=== PATIENT | male | born 1980 | race Caucasian/White ===

== ENCOUNTER 2016-04-21 21:58 | Emergency (ER) | payer OTHER ==
[~2016-04-21] VITALS: Ht 167.6 cm; Wt 68.2 kg
[~2016-04-21 21:58] MED LIST: [UNRECOGNIZED DRUG - CODE] PO
[2016-04-21 22:02] VITALS: BP 128/85; PULSE 114; RESP 18; O2SAT 96
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
[2016-04-21] MEDS ORDERED: SILV400C TP (22:48)
[2016-04-21 22:49] VITALS: BP 128/85; PULSE 114; RESP 18; O2SAT 96
[2016-04-21] MEDS ORDERED: _HYDROcodone/APAP 5-325 mg Tablet PO PRN (22:50)
[2016-04-21] MEDS ORDERED: HYDROcodone-APAP 5-325 mg Tablet PO ONE (22:50)
[2016-04-21 23:32] VITALS: BP 128/85; PULSE 114; RESP 18; O2SAT 96
== END 2016-04-21 23:33 | disposition home or self-care (01) ==
LOC: SED 21:58
DX: T23.271A Burn of second degree of right wrist, initial encounter (principal); T22.211A Burn of second degree of right forearm, initial encounter; T31.0 Burns involving less than 10% of body surface; X16.XXXA Contact with hot heating appliances, radiators and pipes, initial encounter; Y93.89 Activity, other specified; Y92.9 Unspecified place or not applicable; Y99.8 Other external cause status; F17.200 Nicotine dependence, unspecified, uncomplicated; Z88.8 Allergy status to other drugs, medicaments and biological substances

== ENCOUNTER 2016-05-10 17:57 | Emergency (ER) | payer OTHER ==
[~2016-05-10] VITALS: Ht 167.6 cm; Wt 72.7 kg
[~2016-05-10 17:57] MED LIST changes: +SILV400C TP
[2016-05-10 18:02] VITALS: BP 126/82; PULSE 117; RESP 16; O2SAT 98
--- NOTE | 2016-05-10 19:20 | ED.REPORT ---
HPI-Psychiatric Illness Date of Service May 10, 2016 ED Provider: Channing Banks MD A 35 year old male with a history of asthma, hepatitis C, depression, previous suicide attempts, and drug abuse presents to the ED accompanied by his mother with suicidal ideation, worsening from baseline just prior to arrival. The patient denies a set plan but contemplates overdose frequently. He has had previous suicide attempts (x4) by alcohol, Suboxone, prescription medication, and heroin overdose. The patient is also experiencing auditory hallucinations, which instruct him to do anything from brush his teeth to kill himself. He was in [facility] recently for these hallucinations and was discharged yesterday , although he left before he was advised to. He has had previous psychiatric admissions. His symptoms are consistently exacerbated with drug or alcohol use. His last methamphetamine use was today. He has an appointment with his PCP tomorrow but felt he "just couldn't wait." Nursing Notes Stated Complaint: SUICIDAL IDEATION Chief Complaint: Psychiatric Complaint Nursing Notes Reviewed: Yes Allergies: Coded Allergies: trazodone (Verified Allergy, Severe, priapism, 04/21/16) Scheduled Diclofenac-Expunged Drug, Do Not Renew! (Diclofenac-Expunged Drug, Do Not Renew! ) 50 Mg Tablet 75 MG PO BID PRN Silver Sulfadiazine (Silver Sulfadiazine) 400 Gm Cream..g. 400 GM TP BID General Time Seen by MD: 19:04 Chief Complaint Hallucinations, auditory, Suicidal ideation Hx Obtained From: Patient Arrived By: Walk-in Onset Occurred: Just prior to arrival (Worsening from baseline) Symptom Duration: Since onset Severity: Current: No pain currently Severity: Maximum: No pain Associated with: Reports: Depression, Denies: Fever Exacerbated by: Alcohol use, Drug abuse Related History: Reports: Depression, Prior suicide attempt(s) Immunizations: Unknown Recent Healthcare: No recent doctor visit Similar Sx Previous: Yes Risk-Psychiatric Illness Suicide Risk Stratification Suicide Risk Factors - Adult: : Previous attempt: Prior psych admission: Substance abuseNo: Access to firearms, Alcohol use RF Statements: Risk factors reviewed Past Medical History Past Medical History Notes: On suboxone 05/10/2016 Past Medical History Priapism in April 2015, surgical intervention required Priapism in February 2016 Hepatitis C Major depressive disorder Suicide attempts by overdose (alcohol, suboxone, prescription medications, heroin) Reports: Asthma Past Surgical History Left knee surgery Smoking History Current Every Day Smoker Social History Alcohol Use: Denies alcohol use Drug Use: IV drugs, Meth Other Social History: Good social support, Local resident Ambulatory Status Independent Review of Systems Constitutional: Denies: Fever Psychiatric: Reports: Hallucinations, auditory, Suicidal ideation Complete sys rev & neg: except as marked. Physical Exam Initial Vital Signs Vital Signs (First) Date Time Temp Pulse Resp B/P Pulse Ox O2 Delivery O2 Flow Rate FiO2 05/10/16 18:02 37.2 117 16 126/82 98 05/10/16 21:28 Room Air Initial VS: Reviewed Head / Eyes: Atraumatic, Normocephalic ENT: Conjunctiva normal, No scleral icterus Skin: Warm, Dry General/Constitutional: Awake, Alert Neurologic: Oriented X3, Speech NL Psychiatric: Affect NL, Cognitive function NL, Judgment/insight NL, Thought content NL Abnormal Thinking / Perception: Positive: Hallucinations, auditory, Suicidal, no plan Respiratory / Chest: Breath sounds NL, Breath sounds = bilat, No respiratory distress Cardiovascular: Regular rhythm, Heart sounds NL, No gallop, No murmurs, No rubs Heart Rate / Rhythm: Positive: Tachycardia Interpretation & Diagnostics URINE DIPSTICK 1.015 sp gravity 1.0 pH Otherwise negative Urine Drug Screen + Methamphetamine + Oxycodone Otherwise Negative Re-Eval/Medical Decision Med Decision/Clinical Course litigation services manager evaluation completed. The patient does not have a detail plan it does not appear to be an imminent threat to himself or others. He is acutely intoxicated on methamphetamine although behavior is actually fairly normal. He has endorsed plans to follow up with primary care and outpatient substance abuse treatment. Source of Hx: Old records Re-Evaluation/Progress : Time of Eval: 20:57 Patient Status: Condition improved Re-Evaluation/Progress Note: Discussed with patient diagnosis and plan for discharge. Follow-up and return to the ER instructions given. Patient agrees with plan for care and all questions were addressed. Counseled Regarding: Diagnosis, Need for follow-up, When/why to return to ED Discharge & Departure Impression: Primary Impression: Suicidal thoughts Additional Impression: Methamphetamine abuse )( Condition at Discharge: No danger to self, No danger to others Disposition: Home Discharge Condition All VS Reviewed: Yes Condition: Stable Additional Instructions: Do not use methamphetamine, take hydroxyzine which you have at home already as needed for agitation and insomnia. Follow up with [facility] services and with primary care as planned tomorrow. Return to emergency department if having increasing thoughts of self-harm. Referrals: Kael Smith DO (PCP) Zaneibrudy Attestation Portions of this note were transcribed by Cony Nash. I, Dr. Banks, personally performed the history, physical exam, and medical decision-making; I reviewed and confirmed the accuracy of the information in the transcribed note. Signed by: Arlene Booth, 05/10/2016, 22:52 copies to: Kael Smith Donald L MD May 10, 2016 19:20 CONY NASH May 10, 2016 19:46
[2016-05-10 21:28] VITALS: BP 131/76; PULSE 85; RESP 16; O2SAT 96
== END 2016-05-10 21:23 | disposition home or self-care (01) ==
LOC: SED 17:57
DX: R45.851 Suicidal ideations (principal); F15.20 Other stimulant dependence, uncomplicated; F17.200 Nicotine dependence, unspecified, uncomplicated; F11.20 Opioid dependence, uncomplicated; Z88.8 Allergy status to other drugs, medicaments and biological substances

== ENCOUNTER 2016-05-14 00:10 | Observation (INO) | payer OTHER ==
[~2016-05-14] VITALS: Ht 167.6 cm; Wt 73.4 kg
[2016-05-14] VITALS (11 sets, daily range): BP systolic 108–149; BP diastolic 65–95; PULSE 78–141; RESP 12–20; O2SAT 94–100
--- NOTE | 2016-05-14 00:20 | ED.REPORT ---
HPI-Overdose/Alcohol Toxicity Date of Service May 14, 2016 ED Provider: Alex Holly MD Pt is a 35 y.o. male with a hx of heroin abuse who presents to the ED via EMS after a polysubstance overdose. Per EMS pt reported using heroin around 0800 today, he was upset about this use so he then took 14 Suboxone and a 'lot' of hydroxyzine, which he thought was Seroquel, in a suicide attempt. Per pt he was 'having a hard time and wanted to quit'. He states that after taking all of the pills he realized he didn't want to and injected himself with Narcan, he then called EMS. Upon examination pt states he is not suicidal. Pt also states that his counselor is helping him get into an inpatient treatment program. Nursing Notes Stated Complaint: POSS OVERDOSE Chief Complaint: Substance Abuse Nursing Notes Reviewed: Yes Allergies: Coded Allergies: trazodone (Verified Allergy, Severe, priapism, 04/21/16) Scheduled Diclofenac ER (Diclofenac ER) 75 Mg Tablet 75 MG PO BID Silver Sulfadiazine (Silver Sulfadiazine) 400 Gm Cream..g. 400 GM TP BID General Time Seen by Provider: 00:18 Chief Complaint Drug overdose, Suicidal attempt Hx Obtained From: Patient, EMS Arrived By: Ambulance Onset Occurred: Just prior to arrival Severity: Current: No pain currently Past Medical History Past Medical History Notes: On suboxone 05/10/2016 Past Medical History Priapism in April 2015, surgical intervention required Priapism in February 2016 Hepatitis C Major depressive disorder Suicide attempts by overdose (alcohol, suboxone, prescription medications, heroin) Reports: Asthma Past Surgical History Left knee surgery Smoking History Current Every Day Smoker Social History Alcohol Use: Denies alcohol use Drug Use: IV drugs, Meth Other Social History: Good social support, Local resident Ambulatory Status Independent Review of Systems Overdose, polysubstance Psychiatric: Reports: Suicidal ideation Complete sys rev & neg: except as marked. Physical Exam Initial Vital Signs Vital Signs (First) Date Time Temp Pulse Resp B/P Pulse Ox O2 Delivery O2 Flow Rate FiO2 05/14/16 00:19 36.6 141 13 130/80 96 Room Air Initial VS: Reviewed, Vital signs abnormal Extremities: Vascular intact, Neuro intact Skin: Warm, Dry, No cyanosis General/Constitutional: Alert, Well appearing, Well developed, Well hydrated, Well nourished, Cooperative, Not toxic appearing Pt nods off during conversation Pt is calm Respiratory / Chest: Atraumatic, Breath sounds NL, Breath sounds = bilat, No respiratory distress, No rales, No rhonchi, No wheezing, No retractions, No stridor Cardiovascular: Regular rhythm, Heart sounds NL, No gallop, No murmurs, No rubs , Peripheral circulation NL Heart Rate / Rhythm: Positive: Tachycardia Abdomen: Atraumatic, Soft, No distention Neurologic: Oriented X3 Psychiatric: Affect NL, Mood NL, Not suicidal (Upon examination), Not homicidal Head / Eyes: Atraumatic, Normocephalic, PERRL Pupils: Positive: Pinpoint Skin: Atraumatic, Color NL, Warm, Dry, Intact No injection abscesses Interpretation & Diagnostics Lab Results Interpretation Result Diagram: 05/15/16 0802 05/15/16 0802 Test 05/14/16 00:50 Hold Lepe Top Tube Received (Received) Salicylates Level < 3.0ug/mL (30-250) Acetaminophen Level < 15.0ug/mL Rx (10-25) Alcohol, Quantitative < 10mg/dL (0-10) Lab values outside NL range: no clinical significance. Lab Results Interpretation: No evidence of significant coingestions Re-Eval/Medical Decision Med Decision/Clinical Course 35-year-old male with a history of heroin dependence presents after a suicide attempt with Suboxone and hydroxyzine. Case was discussed with poison control and their feeling is that hydroxyzine would be the primary concern at this time. Case was discussed with Dr. Nye the patient will be admitted to the hospitalist service for further evaluation and treatment. Source of Hx: Old records Re-Evaluation/Progress : Time of Eval: 01:37 Re-Evaluation/Progress Note: Pt rechecked. Discussed plan for admission, pt understands and agrees with plan. Consultation #1: Call Returned at: 00:48 Note: Consulted with poison control. Recommended admiting pt for observation. Consultation #2: Referral / Consult Name: Bhavik Nye MD Consulted With: Hospitalist Call Returned at: 01:42 Intel Analyst: Accepts admit Note: Discussed pt conditon, accepts admit. Counseled Regarding: Diagnosis, Lab results, Need for follow-up, When/why to return to ED Discharge & Departure Impression: Primary Impression: Suicide attempt by substance overdose Encounter type: initial encounter Qualified Code: T65.92XA - Toxic effect of unspecified substance, intentional self-harm, initial encounter Disposition: ADMITTED TO HOSPITAL Discharge Condition All VS Reviewed: Yes Condition: Stable Referrals: Kael Smith DO (PCP) Crit Care Except Billable Proc Time Spent: 30-74 minutes Critical Care Notes: Polysubstance overdose requiring Narcan administration and admission to [facility]. Scribe Attestation Portions of this note were transcribed by Eren Ramirez. I, Dr. Holly personally performed the history, physical exam and medical decision-making; I reviewed and confirmed the accuracy of the information in the transcribed note. Signed by: Arlene Parekh, 05/14/16 and 0558. copies to: Kael Smith Howard L MD May 14, 2016 00:19 EREN RAMIREZ May 14, 2016 00:34 (ALT/SGPT) 58U/L (0-44) Alkaline Phosphatase 77U/L (25-150) Total Protein 6.9g/dL (6.4-8.4) Albumin 4.1g/dL (3.4-5.0) Hold Lepe Top Tube Received (Received) Salicylates Level < 3.0ug/mL (30-250) Acetaminophen Level < 15.0ug/mL Rx (10-25) Alcohol, Quantitative < 10mg/dL (0-10) Re-Eval/Medical Decision Source of Hx: Old records Re-Evaluation/Progress : Time of Eval: 01:37 Re-Evaluation/Progress Note: Pt rechecked. Discussed plan for admission, pt understands and agrees with plan. Consultation #1: Call Returned at: 00:48 Note: Consulted with poison control. Recommended admiting pt for observation. Consultation #2: Referral / Consult Name: Bhavik Nye MD Consulted With: Hospitalist Call Returned at: 01:42 Intel Analyst: Accepts admit Note: Discussed pt conditon, accepts admit. Counseled Regarding: Diagnosis, Lab results, Need for follow-up, When/why to return to ED Discharge & Departure Impression: Primary Impression: Suicide attempt by substance overdose Encounter type: initial encounter Qualified Code: T65.92XA - Toxic effect of unspecified substance, intentional self-harm, initial encounter Disposition: ADMITTED TO HOSPITAL Discharge Condition All VS Reviewed: Yes Condition: Stable Referrals: Kael Smith DO (PCP) Arlene Attestation Portions of this note were transcribed by Eren Ramirez. I, Dr. Holly personally performed the history, physical exam and medical decision-making; I reviewed and confirmed the accuracy of the information in the transcribed note. Signed by: Arlene Parekh, 05/14/16 and 0000. copies to: Kael Smith Howard L MD May 14, 2016 00:19 EREN RAMIREZ May 14, 2016 00:34
[2016-05-14] MEDS ORDERED: 0.9% Sodium Chloride 1,000 ML IV ONE (00:39)
[2016-05-14 01:07] LABS: Mean Corpuscular Hemoglobin 27.4 pg (27.0-35.0); Mean Corpuscular Volume 79.7 fL (81-100)
[2016-05-14] MEDS ORDERED: Ondansetron 2 mg/mL 2 mL Inj IVPUSH PRN (01:50)
[2016-05-14] MEDS ORDERED: Polyethylene Glycol (PEG) 17 Gm Powder PO PRN (01:50)
[2016-05-14] MEDS ORDERED: Alum-Mag Hydrox-Simeth 30 mL Suspension PO PRN (01:50)
--- NOTE | 2016-05-14 02:15 | PCM.HPMED ---
Subjective Date of Service May 14, 2016 Primary Provider: Admitting Physician: Primary Care Physician: Kael Smith DO Attending Physician: Admit Status: From the Emergency Department, Remote Telemetry Chief Complaint: Suicide attempt on substance overdose History of Present Illness: Patient is a 35 year old male with a history of asthma, hepatitis C, depression , previous suicide attempts, and drug abuse presents to the ED for suicidal attempt. Last seen on 05/10/16 for same. He has had previous suicide attempts ( x4) by alcohol, Suboxone, prescription medication, and heroin overdose. Unable to obtain history due to patient being severely sedated, unable to arouse at this time. Per ED notes: "Pt is a 35 y.o. male who presents to the ED via EMS. Relapsed on heroin recently. Reports taking 14 suboxone. Opiate use at 0800. He says he used Narcan, injection. He thought he took Seroquel but it was hydroxyzine, he says he to a 'lot'. States he is having a "hard time right now and wants to quit ". He states it was a suicide attempt but he realized he didn't want to and called 911. He says his counselor is helping him get into an inpatient treatment program." In the ED, vitals significant for tachycardia 146 bpm. WBC 15.8. Negative for salicylate, acetaminophen, alcohol toxicity. Poison control was consulted and recommends admitting pt for observation. Review of Systems: Unable to obtain due to patient being severely sedated. Allergies Coded Allergies: trazodone (Verified Allergy, Severe, priapism, 04/21/16) Home Medications Diclofenac-Expunged Drug, Do Not Renew! (Diclofenac-Expunged Drug, Do Not Renew! ) 50 Mg Tablet 75 MG PO BID PRN Silver Sulfadiazine (Silver Sulfadiazine) 400 Gm Cream..g. 400 GM TP BID Suboxone PMH Priapism in April 2015, surgical intervention required Priapism in February 2016 Hepatitis C Major depressive disorder Suicide attempts by overdose (alcohol, suboxone, prescription medications, heroin) Asthma Surgical History Left knee surgery Social History Hx Alcohol Use: Yes (quit 3 three years ago - per hx) Hx Substance Use: Yes (heroin, meth) Smoking Status: Current Every Day Smoker Exam Vital Signs Vital Sign - Last Date Time Temp Pulse Resp B/P Pulse Ox O2 Delivery O2 Flow Rate FiO2 05/14/16 01:05 130 12 108/65 94 Room Air 05/14/16 00:19 36.6 Intake and Output 05/13/16 05/13/16 05/14/16 Cumulative From/Thru 15:00 23:00 07:00 05/14/16 00:19 - 05/14/16 01:05 Intake Total 1000 ml 1000 ml Balance 1000 ml 1000 ml Intake IV Total 1000 ml 1000 ml Exam GEN: Appears to be heavily sedated. Unable to arouse long enough for questioning. Temporarily responds to stimuli. HEENT: NC/AT, pupils non reactive and fixed at 3mm, sclera anicteric Neck: Supple with full PROM CV: Tachycardia normal S1, S2, no murmurs appreciated Lungs: CTAB, no respiratory distress ABD: soft, non-tender, no organomegaly, normal active bowel sounds Skin: Warm, dry and intact, no rashes, or lesions Ext: no edema or cyanosis Neuro: unable to obtain Psych: unable to obtain Lab and Diagnostics Result Diagram: 05/14/164905/14/1649 Assessment & Plan Patient is a 35 year old male with a history of asthma, hepatitis C, depression , previous suicide attempts, and drug abuse presents to the ED for suicidal attempt. Last seen on 05/10/16 for same. Admitted for overdose on Suboxone and hydralazine. Substance overdose, present on admission. Active. - most likely overdose on hydralazine based on symptoms of tachycardia, highly unlikely to be Suboxone overdose based on physical findings lacking symptoms such as pinpoint pupils, nystagmus although still possible - monitor for signs arrhythmia, myocardial ischemia, profound shock, hypoventilation - telemetry - monitor for anticholinergic toxicity - avoid QT prolongation medications Suicide attempt - consider SW visit if patient motivated for resources Asthma - on no home medications - Acetaminophen as needed for mild pain/fever/headache - Bowel regimen as needed - Antiemetic as needed Patient admitted under observation status with expected length of stay < 2 midnights. DVT: Enoxaparin GI: not-indicated CODE: assuming FULL CODE Pain Evaluation: Adequate Pain Control VTE Prophylaxis: Sub-Q Enoxaparin Resuscitation Status: CPR: Attempt Resuscitation Attending Statement The patient was seen and examined together with Dr. Keller on 05/14 and I agree with the history, exam and plan as outlined in the note above. Peggy Keller DO May 14, 2016 01:52 Bhavik Nye MD May 14, 2016 19:00
[2016-05-14] MEDS: 0.9% Sodium Chloride 1,000 ML IV SCH ×3 (02:25→18:33)
--- NOTE | 2016-05-14 03:15 | NUR ---
Patient was brought to the [facility] by his ED RN. Patient is very sleepy but is arousal to painful stimuli. Patient ED RN reported that the patient has been very sedated in the ED due to the patient attempting to OD on hydroxyzine. ABC's stable, vitals stable, tele in place and sitter at the patients bed side for safety. Provider contacted and inform that the patient was being violent and required soft restraints. Orders for Haldol received and medications administered. Addendum: 05/14/16 at 0444 by MAGGIE GÓMEZ RN Patient's mentation has continued to range from being very sleepy at time to being rather violent and aggressive. provider came to see the patient and reassess plan of care. Patient remains in soft restraints. CMS is intact in all extremities to baseline.
[2016-05-14] MEDS ORDERED: DICL75TA6 PO (03:35)
[2016-05-14] MEDS ORDERED: Haloperidol 5 mg/mL Inj ONE (03:49)
[2016-05-14] MEDS ORDERED: Haloperidol 5 mg/mL Inj IM ONE (03:55)
[2016-05-14 05:02] LABS: BASOPHILS % (AUTO) 0.3 % (0-3); MONOCYTES % (AUTO) 11.7 % (4-12); Mean Corpuscular Hemoglobin 27.4 pg (27.0-35.0); Mean Corpuscular Volume 80.5 fL (81-100); NEUTROPHILS % (AUTO) 72.8 % (40-74); Platelet Count 224 bil/L (150-400)
[2016-05-14] MEDS: Sodium Chloride LOK Flush 10 mL Syringe IVFLUSH SCH ×3 (08:30→20:44)
[2016-05-14] MEDS ORDERED: Influenza (Adult) Vaccine 0.5 mL Syringe IM ONE (08:30)
--- NOTE | 2016-05-14 14:49 | NUR ---
Social Work: Screen D: Per EMR review, pt is a 35 year old male admitted for polydrug Overdose/Suicide Attempt. Pt is [facility] [employer] insurance. PCP Is Kael Smith DO. NOK is Raiza Molina, mother. Readmit score is high, 4/8. Pt discussed in am rounds. Pt is not appropriate for MH or CD assessment at this time. Pt behavior/cognition ranges from sleepy/sedated to agitated and aggressive. Pt currently in restraints. Pt was seen by ED FINANCIAL SERVICES INTERN on 05/10/15 with similar suicidal ideation and substance use accompanied by auditory hallucinations. Pt was not admitted to the [facility] as his symptomolgy was believed to be related to his polysubstance abuse. Hallucinations had improved prior to d/c. Pt is currently seen for MH counseling at [facility] and was recently diagnosed with Schizoaffective disorder, per public health nurse at am rounds. A: Pt who is I at baseline. P: FINANCIAL SERVICES INTERN to see pt when medically cleared and able to be assessed for possible inpatient psychiatric treatment. FINANCIAL SERVICES INTERN to continue to follow. EMILE Bhakta
[2016-05-14 17:16] LABS: APPEARANCE,URINE CLEAR (CLEAR,HAZY); COLOR,URINE YELLOW (YELLOW); OCCULT BLOOD,URINE NEGATIVE (NEGATIVE); PH,URINE 6.5 (5.0-8.0); UROBILINOGEN,URINE NORMAL (NORMAL)
--- NOTE | 2016-05-14 18:16 | NUR ---
Mentation/Priapism Pt somnolent for majority of shift, Pt frequently awakens and then quickly falls back to sleep. Pt verbalizing hallucinations and speech remains slurred. Pt disoriented. Pt becomes agitated/tries to climb out of bed, Pt's 4 point soft restraints continued, MDs aware. Pt's penis erect since beginning of shift, MDs aware, urology consulted, Dr. Rosario performed draining procedure at bedside with instructions to remove coban after 2-3hours, will pass on to oncoming NOC RN. Pt's penis appears to be less erect after procedure for remainder of shift.
--- NOTE | 2016-05-14 18:16 | CONS ---
[address] [address] CONSULTATION REPORT PATIENT: LESLIE GREY : 1980 MR#: [id number] ADMIT: 05/14/2016 JOB ID: [id number] DATE OF SERVICE: 05/14/2016 REASON FOR CONSULTATION: Priapism. HISTORY OF PRESENT ILLNESS: This 35-year-old man was admitted to [facility] following a suicide attempt with what appears to be a variety of drugs in his system, is reported heroin, Suboxone, Narcan and hydroxyzine. He is a user of heroin and methamphetamines, is apparently trying to get into an inpatient treatment program. Priapism was not noted on admission, but has apparently been present for the last several hours. PAST MEDICAL/SOCIAL/FAMILY HISTORY: See admission note. PHYSICAL EXAMINATION: A well-developed, reasonably fit-looking, 35-year-old, significantly obtunded, nonresponsive with corporal priapism. No swelling of the glans. Tourniquet was applied to the base of the penis using a 1/4-inch Parrish drain. A 14-Mongolian Angiocath was inserted into the right corporal body and approximately 150 cc of dark red blood drained. The blood gradually turned to bright red after several minutes. 6 cc of 1% Xylocaine with epinephrine was injected into the corporal body. A compression dressing with Coban was applied and after 10 minutes, the tourniquet was released with no subsequent tachycardia. I left instructions for the Coban dressing to be removed 2 hours' time, then reapplied. The priapism, however, may persist until all drugs are out of his system.
--- NOTE | 2016-05-14 23:07 | PCM.PNMED ---
Subjective Date of Service May 14, 2016 Subjective Patient is a 35 year old male with a history of asthma, hepatitis C, depression , previous suicide attempts, and drug abuse admitted for treatment of suicidal attempt by drug overdose. Reports taking 14 suboxone. Opiate use at 0800. He says he used Narcan, injection. He thought he took Seroquel but it was hydroxyzine, he says he to a 'lot'. States he is having a "hard time right now and wants to quit". He states it was a suicide attempt but he realized he didn' t want to and called 911. Hospital day 1 Overnight: no events reported Today: patient is lying in bed in soft restraints, able to verbalize with muffled voce ROS negative except as mentioned above Exam Vital Signs Vital Sign - Last Date Time Temp Pulse Resp B/P Pulse Ox O2 Delivery O2 Flow Rate FiO2 05/14/16 04:30 121 05/14/16 03:17 37.2 16 129/82 97 Room Air Intake and Output 05/13/16 05/13/16 05/14/16 Cumulative From/Thru 15:00 23:00 07:00 05/14/16 00:19 - 05/14/16 06:28 Intake Total 2915 ml 2915 ml Output Total 1 ml 1 ml Balance 2914 ml 2914 ml Intake Oral 0 ml 0 ml IV Total 2915 ml 2915 ml Output Urine Total 1 ml 1 ml # Bowel Movements 0 0 Exam GEN: Somnolent Difficult to arouse long enough for questioning. Temporarily responds to stimuli. Alert to person, HEENT: NC/AT, pupils non reactive and fixed at 3mm, sclera anicteric Neck: Supple with full PROM CV: Tachycardia normal S1, S2, soft systolic murmur heart at mitral post, no gallop no rub Lungs: CTAB, no respiratory distress ABD: soft, non-tender, no organomegaly, normal active bowel sounds Skin: Warm, dry and intact, no rashes, or lesions Ext: no edema or cyanosis Neuro: muffled voice, difficult to assess due to decreased mentation IVs and Medications Medications Reviewed: Medications were reviewed in detail Lab and Diagnostics Result Diagram: 05/14/1641905/14/16419 Assessment & Plan Patient is a 35 year old male with a history of asthma, hepatitis C, depression , previous suicide attempts, and drug abuse presents to the ED for suicidal attempt. Last seen on 05/10/16 for same. Admitted for treatment of overdose on Suboxone and hydralazine. Hospital Day 1 1. Substance overdose, present on admission. Active. - most likely overdose on hydralazine based on symptoms of tachycardia, highly unlikely to be Suboxone overdose based on physical findings lacking symptoms such as pinpoint pupils, nystagmus although still possible - monitor for signs arrhythmia, myocardial ischemia, profound shock, hypoventilation - telemetry - monitor for anticholinergic toxicity - avoid QT prolongation medications - Repeat EKG in AM 2. Priapism, acute, active - Penis noted to be erect on physical exam in late morning, monitored throughout the day - Penis did not become flaccid when rechecked in afternoon -Urology consulted on case, for possible drainage, we appreciate their time and expertise in this case 3. Suicide attempt - consider SW visit if patient motivated for resources, difficult to assess at this time - Per outpatient records patient recently stated he was hearing voices, continue to monitor and assess, consider psychiatry consult in AM, 4. R/o endocarditis - With patient IVDU history, his risk for endocarditis is increased - Faint systolic murmur heard on physical exam - procalcitonin and lactic acid ordered, negative - recheck procal and lactic acid in AM - Continue to monitor 4.Asthma - on no home medications - Acetaminophen as needed for mild pain/fever/headache - Bowel regimen as needed - Antiemetic as needed DVT: Enoxaparin GI: not-indicated CODE: assuming FULL CODE Disposition: [facility] home once withdrawal symptoms have improved and patient is stable VTE Prophylaxis: Sub-Q Enoxaparin Resuscitation Status: CPR: Attempt Resuscitation Attending Statement The patient was seen and examined together with Dr. Gutiérrez on 05/14/2016 and I agree with the history, exam and plan as outlined in the note above. . GAMALIEL GUTIÉRREZ DO May 14, 2016 07:00 Juan Goode MD May 16, 2016 15:27
[2016-05-15] MEDS: 0.9% Sodium Chloride 1,000 ML IV SCH ×3 (02:17→18:44)
[2016-05-15 02:54] VITALS: BP 101/58; PULSE 80; RESP 20; O2SAT 93
[2016-05-15 03:01] LABS: Mean Corpuscular Hemoglobin 27.4 pg (27.0-35.0); Mean Corpuscular Volume 81.4 fL (81-100)
[2016-05-15 03:18] LABS: INR 1.06 ratio
[2016-05-15 03:54] LABS: Magnesium 1.9 mg/dL (1.6-2.6)
--- NOTE | 2016-05-15 04:30 | NUR ---
Mentation Pt alert to self only, significantly agitated and combative when awake, swearing at staff and attempting to get out of bed, jerking limbs around and straining against restraints. Staff attempts to reorient to situation repeatedly but pt does not reorient; incoherent muttering when awake interspersed with angry yelling. Pt intermittently resting, rousing to loud voice or repeated stimuli. Occasionally compliant with care. 2mg IVP lorazepam administered x2 this shift; pt resting without interruption since approx. 0130 to present. VSS, tele SR 70s-90s.
[2016-05-15 05:02] VITALS: PULSE 70
[2016-05-15 08:00] VITALS: PULSE 77
[2016-05-15 08:12] VITALS: BP 132/92; PULSE 70; RESP 20; O2SAT 99
[2016-05-15] MEDS: Sodium Chloride LOK Flush 10 mL Syringe IVFLUSH SCH ×2 (08:22→15:53)
[2016-05-15 08:39] LABS: Mean Corpuscular Hemoglobin 27.9 pg (27.0-35.0); Mean Corpuscular Volume 82.3 fL (81-100)
--- NOTE | 2016-05-15 12:07 | DRSVH ---
PROCEDURE: X-RAY CHEST ONE VIEW, PORTABLE ([id number]) INDICATIONS: sob TECHNIQUE: One view of the chest was acquired. COMPARISON: None. FINDINGS: Surgical changes and devices: None. Lungs and pleura: No pleural effusions or pneumothorax. Bibasilar airspace opacities present. Mediastinum: Mediastinal contours appear normal. Heart size is normal. Bones and chest wall: No suspicious bony lesions. Overlying soft tissues appear unremarkable. IMPRESSION: Bibasilar atelectasis versus aspiration or pneumonia. Dictated by: Johnny Lebron [facility] Interpreted: Paul Mcdowell MD on 05/15/2016 at 12:06 Transcribed by: JESUSITA on 05/15/2016 at 12:07 Approved by: Paul cMdowell M.D. on 05/15/2016 at 12:28
[2016-05-15 17:58] VITALS: BP 132/80; PULSE 82; RESP 20; O2SAT 96
--- NOTE | 2016-05-15 19:32 | NUR ---
Mentation Pt. has been more alert and oriented this shift than what I got from report. He states his name clearly and knows in what hospital he is at and what city. Pt. was switched to 2pt restraints before lunch stating that he wants to be more compliant with care. Around 1445 Pt. became agitated and somewhat aggressive stating that he wanted to get out of here, I administered 2mg ativan through IV and was made aware of this. Pt. became more relaxed for a couple more hours but around 1800 he became a little restless again. Pt. has a sitter and is in his room with lights dimmed/off and TV volume down/mute to decrease stimulation to help calm him.
[2016-05-15 19:36] VITALS: BP 146/76; PULSE 109; RESP 16; O2SAT 96
--- NOTE | 2016-05-15 19:56 | PCM.PNMED ---
Subjective Date of Service May 15, 2016 Subjective Patient is a 35 year old male with a history of asthma, hepatitis C, depression , previous suicide attempts, and drug abuse admitted for treatment of suicidal attempt by drug overdose. Hospital day 2. Overnight: no events reported Today: Patient is lying in bed in soft restraints, able to verbalize with muffled voce. Patient more alert with increasingly agitated compared to yesterday. Patient stated today that he is actively heading voices. ROS negative except as mentioned above Exam Vital Signs Vital Sign - Last Date Time Temp Pulse Resp B/P Pulse Ox O2 Delivery O2 Flow Rate FiO2 05/15/16 17:58 36.6 82 20 132/80 96 Room Air Intake and Output 05/14/16 05/14/16 05/15/16 Cumulative From/Thru 15:00 23:00 07:00 05/14/16 00:19 - 05/15/16 05:59 Intake Total 1397 ml 1512 ml 5824 ml Output Total 1600 ml 700 ml 2301 ml Balance -203 ml 812 ml 3523 ml Intake Oral 0 ml 0 ml 0 ml IV Total 1397 ml 1512 ml 5824 ml Output Urine Total 1600 ml 700 ml 2301 ml # Voids 3 3 6 # Bowel Movements 0 0 0 Exam GEN: Somnolent, difficult to arouse. Temporarily responds to stimuli. Alert to person, HEENT: NC/AT, pupils non reactive and fixed at 3mm, sclera anicteric Neck: Supple with full PROM CV: Tachycardia normal S1, S2, soft systolic murmur heart at mitral post, no gallop no rub Lungs: CTAB, no respiratory distress ABD: soft, non-tender, no organomegaly, normal active bowel sounds Skin: Warm, dry and intact, no rashes, or lesions Ext: no edema or cyanosis Neuro: muffled voice, difficult to assess due to decreased mentation Psych: Flattened affect, labile mood, increasing agitated, patient stated that he is actively hearing multiple voices, denies homicidal ideation, denies suicidal ideation, poor judgement, poor insight. IVs and Medications Medications Reviewed: Medications were reviewed in detail Lab and Diagnostics Result Diagram: 05/15/1680105/15/16801 Assessment & Plan Patient is a 35 year old male with a history of asthma, hepatitis C, depression , previous suicide attempts, and drug abuse presents to the ED for suicidal attempt. Last seen on 05/10/16 for same. Admitted for treatment of overdose on Suboxone and hydralazine. Hospital Day 2 1. Substance overdose, present on admission. Active. - Patient reports taking 14 suboxone. IV heroine use at morning prior to admission. He says he used Narcan, injection. He thought he took Seroquel but it was hydroxyzine, he says he to a 'lot'. States he is having a "hard time right now and wants to quit". He states it was a suicide attempt but he realized he didn't want to and called 911. - most likely overdose on hydralazine based on symptoms of tachycardia, highly unlikely to be Suboxone overdose based on physical findings lacking symptoms such as pinpoint pupils, nystagmus although still possible - Urine tox screen positive for Methamphetamines - monitor for signs arrhythmia, myocardial ischemia, profound shock, hypoventilation - Continue telemetry - monitor for anticholinergic toxicity - avoid QT prolongation medications - Repeat EKG in AM QTc reduced from yesterday, continue to monitor 2. Auditory hallucinations, acute, present on admission - At present time etiology of altered mental status and hallucinations assess whether it is drug induced psychosis or whether there is underlying psychotic disorder vs mood disorder with psychotic features - Consider SW visit if patient motivated for resources, difficult to assess at this time - Per outpatient records patient recently stated he was hearing voices, continue to monitor and assess, - Psychiatry consulted, we appreciate their time and expertise 3. Priapism, acute, resolved - Penis drained, dressed no sign of infection from drainage site. - Urology consulted on case for drainage, 150cc dark blood drained, penis was dressed with gauze, we appreciate their time and expertise in this case 4. R/o endocarditis, unlikely at present time - With patient IVDU history, his risk for endocarditis is increased - Faint systolic murmur heard on physical exam - procalcitonin and lactic acid ordered, negative - Procal and lactic acid, negative - Continue to monitor 5.Asthma - on no home medications - Consider PRN nebulizer treatments once patient stabilizes - Acetaminophen as needed for mild pain/fever/headache - Bowel regimen as needed - Antiemetic as needed DVT: Enoxaparin GI: not-indicated CODE: assuming FULL CODE Disposition: likely home once withdrawal and psychotic symptoms have improved and patient is stable VTE Prophylaxis: Sub-Q Enoxaparin Resuscitation Status: CPR: Attempt Resuscitation Attending Statement The patient was seen and examined together with Dr. Gutiérrez on 05/15/2016 and I agree with the history, exam and plan as outlined in the note above. . GAMALIEL GUTIÉRREZ DO May 15, 2016 19:56 Juan Goode MD May 16, 2016 15:28
[2016-05-16] MEDS: Sodium Chloride LOK Flush 10 mL Syringe IVFLUSH SCH ×2 (00:30→08:20)
[2016-05-16] MEDS: 0.9% Sodium Chloride 1,000 ML IV SCH ×2 (02:33→10:25)
[2016-05-16 02:36] VITALS: BP 114/74; PULSE 87; RESP 20; O2SAT 97
[2016-05-16 02:45] LABS: BASOPHILS % (AUTO) 0.3 % (0-3); EOSINOPHILS % (AUTO) 1.5 % (0-5); MONOCYTES % (AUTO) 14.7 % (4-12); Mean Corpuscular Hemoglobin 27.2 pg (27.0-35.0); Mean Corpuscular Volume 80.8 fL (81-100); NEUTROPHILS % (AUTO) 61.7 % (40-74); Platelet Count 204 bil/L (150-400)
[2016-05-16 03:14] LABS: Magnesium 1.9 mg/dL (1.6-2.6)
--- NOTE | 2016-05-16 03:42 | NUR ---
Mentation Patient in 2 point restraints with sitter at bedside at beginning of shift. Alert, calm, A&Ox3. Restraints loosened to allow patient to eat. Cooperative and appropriate with care. Sleeping without disturbance for most of night. Restraints removed without incident, sitter continues at bedside. Continue to monitor.
[2016-05-16 07:42] VITALS: BP 133/88; PULSE 94; O2SAT 96
[2016-05-16 11:19] VITALS: BP 127/84; PULSE 113; RESP 20; O2SAT 94
--- NOTE | 2016-05-16 12:46 | NUR ---
Mental Health Assessment Kenny Frances 05/16/2016 Precipitation Problem: Pt is a 35 year old male who was admitted to [facility] after a suicide attempt via overdose. Pt has a history of polysubstance abuse, suicidal ideations accompanied by auditory hallucinations. Pt was recently at [facility] ED on 05/10/2016 with similar complaints. PARKER met with pt at bedside. Pt reports that on the night of admission, pt states that his auditory hallucinations were telling me to take the pills and that he knew that if consuming them he would . Pt states that after ingestion pts voices then began to then tell him that you want to live and he then called 911. Pt confirms that he used heroin and methamphetamines prior to his suicide attempt. Pt reports that he has been using both heroin and meth for 4 years but only in the last six months began to have hallucinations. Pt states that he had a two month period of sobriety during that time when he was working for [employer]. He states that his hallucinations were more muted but that he began to feel more anxiety and paranoia. Pt relapsed on 04/14/2016 and has been using almost daily since then. Pt states that he continues to hear voices, even throughout assessment with PARKER, with voices telling him thats not true, Kenny. Pt seems to understand that voices are not real but expresses that when he is at home, alone, he is very fearful of what they will tell him to do and his willingness to comply. Pt states that he notices that when at the hospital his auditory hallucinations appear to be more muted and that his hallucinations are much worse when he is at home, especially at night. Mental Status: Pt is alert and oriented. Pt is well groomed, dressed in hospital gown. Pt reports feeling depressed with a substantial amount of guilt over his recent decline. Pt intermittently tearful during assessment; cooperative and forthcoming with information. Pt eye contact is good with speech in normal rate, volume and rate. Pts thought process is clear and linear and goal oriented. Psychiatric History: Pt reports two previous hospitalizations at [facility] in 2013. Pt currently seeing a counselor at [facility]. Pt states he was diagnosed with Major Reoccuring Depressive Disorder and PTSD while completing inpatient treatment at [facility]. Pt reports no family psychiatric history. Chemical Dependency History: Pt confirms polysubstance use of meth and heroin since he was 31 year old (approximately 4 years). Pt states he has been to treatment at [facility], [facility], [facility] and [facility]. Pt is currently enrolled in CD counseling through [facility] and sees Krishan Thibodeaux ([phone]) who is attempting to help pt get back into inpatient CD treatment. Legal History: Not discussed with pt. Disposition: Pt continues to express concerns for safety post-discharge. He denies any current suicidal or homicidal ideation. Pt is interested in hospitalization however is also receptive to discharge home if medication recommendations could be made by psychiatry. PARKER did discuss that his auditory symptoms may be likely due to his recent substance use and that manager code sobriety will likely be essential if he wishes for his auditory hallucinations to subside. PARKER spoke with MD who states that he has consulted psychiatry for additional recommendations. PARKER will follow up with psychiatry and assist with safety and discharge planning if the pt is to go home. EMILE Bhakta Addendum: 05/16/16 at 1441 by CARRO[place] [employer] SS PARKER Staffed case with psychiatrist, Dr. Sofia. Per psychiatry, pt was engaged with evaluation until the topic of Suboxone and Seroquel was approached. Pt requested these medications at discharge. MD declined this request based on pt's history and circumstances surrounding admission. Pt is not a candidate for inpatient hospitalization for MH and needs to follow up with outpatient chemical dependency counseling. Psychiatry is recommending Zyprexa as a discharge medication. PARKER met with pt at bedside to confirm safety plan. Pt states that he is not currently suicidal, or homicidal. He was provided with 09/11 Crisis Phone Number. Pt declined next day appointment with [facility] and states he will call his counselor at [facility] on Wednesday morning. Pt provided verbal consent for PARKER to leave message for pt's therapist to also notify that pt is discharging. PARKER left message for pt's case work aide at [facility] to notify of pt's discharge. Pt states his mother is his biggest support and that he lives with her. He declined PARKER request to speak with her to discuss safety plan. Pt confirms that if he becomes suicidal he will return to the ER.
--- NOTE | 2016-05-16 13:18 | PCM.DIMED ---
GAMALIEL GUTIÉRREZ DO 05/16/16 1318: Discharge Instructions Date of Service May 16, 2016 Dates of Hospitalization May 14, 2016 at 01:56 Discharge Diagnosis Discharge Diagnosis Depression Priapism Suicide attempt Methamphetamine abuse Diet No restrictions Activity Limited until seen by PCP Call your provider Fever or Chills, Shortness of breath, Bleeding, Chest pain, Vomitting, Excessive diarrhea, Weakness (unilateral), Other Patient Instructions Follow up with PCP in two weeks Follow up with [facility] in once week. Continue home medications Follow up with Suboxone clinic on Wednesday Crisis Center number provided please call as soon as you can Stop Seroquel Stop Hydroxyzine If you have any thoughts of worsening depression, suicide, homicide, hurting yourself or other please seek emergency medical care Follow-up plan as above Follow-up with PCP in: 1 week Juan Goode MD 05/16/16 1529: Discharge Instructions Attending's Statement The patient was seen and examined together with Dr. Gutiérrez on 05/16/2016 and I agree with the history, exam and plan as outlined in the note above. . GAMALIEL GUTIÉRREZ DO May 16, 2016 13:18 Juan Goode MD May 16, 2016 15:29
[2016-05-16] MEDS ORDERED: OLAN2.5T3 PO (13:19)
--- NOTE | 2016-05-16 13:55 | NUR ---
discharge of patient Pt cleared by Dr Gill, Pt asking to leave right away getting slightly agitated. Stating will leave AMA if discharge paper work not done right away. Reviewed discharged instructions with patient, pt verbalized understanding. Pt walked out of hospital stating "my house is around the corner." IV previously discontinued. Pt left hospital to home self care with instructions and prescriptions.
--- NOTE | 2016-05-16 15:14 | CONS ---
[address] [address] CONSULTATION REPORT PATIENT: LESLIE GREY : 1980 MR#: [id number] ADMIT: 05/14/2016 JOB ID: [id number] DATE OF SERVICE: 05/16/2016 PSYCHIATRIC CONSULTATION: IDENTIFICATION: The patient is a 36-year-old white male, currently living in a travel trailer with his sister at his mother's property. He is currently unemployed and in the past has worked in construction. REASON FOR ADMISSION: The client reports a suicide attempt trying to kill himself with first heroin, then Suboxone, then Seroquel and then becoming afraid injecting himself with Narcan and bringing himself into the ED. HISTORY OF PRESENT ILLNESS: The patient presents today for evaluation and treatment of suicidal ideation after a recent suicide attempt. I met with him for a 60 minute evaluation and reviewed course and records kept by [facility]. Client's main issue is narcotic addiction. Secondary issues are suicidal ideation when he is withdrawing from heroin and methadone. The condition is fairly directly related to heroin and methamphetamine abuse. When I meet with him today, he consistently denied suicidal ideation, plan or intent. He was very focused on getting a prescription for Suboxone. His symptoms of depression and suicidal ideation are made worse when he is actively using. He attempted to get sober and reports being sober for two months from January to March of 2016, but continues to struggle. He states lately after he has been coming off heroin and methamphetamine that he has been having auditory hallucinations of voices narrating his actions. At the time of my evaluation, he denied auditory hallucinations and did not appear to be responding to internal stimuli. He is currently presenting with no signs of emotional liability, cognitive deficits, or impairment in judgment or insight. His reality testing is intact in his coping skills seem to be at baseline. PSYCHIATRIC REVIEW OF SYSTEMS: For depression, blaine, psychosis, anxiety and trauma were all negative. All of the symptoms of depression seemed to be fairly directly related to substance abuse. PAST MEDICAL HISTORY: MEDICATIONS: None. ALLERGIES: TRAZODONE. ILLNESSES: 1. Hepatitis C. 2. Asthma. FAMILY MEDICAL HISTORY: Noncontributory. PAST PSYCHIATRIC HISTORY: Client describes ongoing use of substances and ongoing depression. PAST PSYCHOSOCIAL: Client born in [place]. Graduated from high school and attended technical school for [employer]. He has worked in construction. HISTORY OF TRAUMA: Client denies. DRUG AND ALCOHOL USE: Client is a poor historian but states he is heavily involved in the IV methamphetamine and narcotic culture. LETHALITY: Client describes overdosing on heroin and then reversing this by injecting himself with Narcan which he apparently carries with him. Currently denies suicidal ideation. RELATIONSHIPS: Client single. Denied a mormon and denied history of legal problems. PHYSICAL EXAMINATION: Reviewed from the ED and essentially normal. LABORATORIES: CBC with WBC elevated at 15. Liver electrolytes, thyroid normal except for glucose of 149. MENTAL STATUS: Client neatly dressed, calm, pleasant, spoke in a clear and articulate manner. Mood was euthymic. Affect congruent. Normal intensity. Thought process: Client is able to relate a coherent history. Logical and goal oriented. Thought content: Significant for themes of how he can get engaged in services for psychotherapy and sobriety. Denied suicidal ideation, plan or intent. Alert and oriented to person, place and date. Immediate, short, and long-term memory intact. Attention and concentration normal. Insight and judgment fair. Impulse control highly contained yet has difficult time handling impulses of hunger or anger. Reality testing intact. Competence to handle stressors appears to have returned to baseline. IMPRESSION: The patient is a 35-year-old white male with a severe addiction to heroin and methamphetamine. He denies suicidal ideation at present and minimizes symptoms of depression. He talked repeatedly about wanting Suboxone and Seroquel. I am concerned he is using the Suboxone to enable himself to continue a heroin and methamphetamine addiction. I am concerned about his use of Seroquel as reportedly he recently tried to overdose on this. The patient has demonstrated the ability to be sober when he participates in a 12 step program. I would certainly encourage that direction. At this time, client has a reasonable safety plan in place and he is clear for discharge. DIAGNOSIS: AXIS I 1. Polysubstance abuse, IV methamphetamine, IV heroin. 2. Recent overdose on Suboxone and Seroquel. 3. Substance induced mood disorder. 4. Rule out major depressive disorder. AXIS II Antisocial traits. AXIS III Hepatitis C. AXIS IV Unknown. AXIS V Current global assessment of functioning equal to 50. PLAN: 1. Recommend client be discharged to home. 2. Recommend he not be prescribes Suboxone and Seroquel given his recent overdose history and difficulty with impulse control. Rather I have recommend 90 NA meetings in 90 days and go to a walk-in appointment for [facility] on Wednesday for dual treatment. Thanks for an interesting consult.
--- NOTE | 2016-05-16 19:38 | PCM.DC.MED ---
Discharge Summary Date of Service May 16, 2016 Dates of Hospitalization Date of Hospital Admission May 14, 2016 at 01:56 Date of Discharge: May 16, 2016 Providers: Admitting Physician: Bhavik Nye MD Primary Care Physician: Kael Smith DO Attending Physician: Bhavik Nye MD Diagnosis at Time of Discharge Diagnosis at Time of Discharge Depression Priapism Suicide attempt Methamphetamine abuse Consultations psychiatry Brief History Copied from H&P "Patient is a 35 year old male with a history of asthma, hepatitis C, depression , previous suicide attempts, and drug abuse presents to the ED for suicidal attempt. Last seen on 05/10/16 for same. He has had previous suicide attempts ( x4) by alcohol, Suboxone, prescription medication, and heroin overdose. Unable to obtain history due to patient being severely sedated, unable to arouse at this time. Per ED notes: "Pt is a 35 y.o. male who presents to the ED via EMS. Relapsed on heroin recently. Reports taking 14 suboxone. Opiate use at 0800. He says he used Narcan, injection. He thought he took Seroquel but it was hydroxyzine, he says he to a 'lot'. States he is having a "hard time right now and wants to quit ". He states it was a suicide attempt but he realized he didn't want to and called 911. He says his counselor is helping him get into an inpatient treatment program." In the ED, vitals significant for tachycardia 146 bpm. WBC 15.8. Negative for salicylate, acetaminophen, alcohol toxicity. Poison control was consulted and recommends admitting pt for observation." Hospital Course Patient is a 35 year old male with a history of asthma, hepatitis C, depression , previous suicide attempts, and drug abuse presents to the ED for suicidal attempt. Last seen on 05/10/16 for same. Admitted for treatment of overdose on Suboxone and hydralazine. 1. Poly substance overdose, present on admission. Resolved - Patient reported taking 14 suboxone. IV heroine use at morning prior to admission. He said he used Narcan, injection. He thought he took Seroquel but it was hydroxyzine, he says he to a 'lot'. States he is having a "hard time right now and wants to quit". He stated it was a suicide attempt but he realized he didn't want to and called 911. - most likely overdose on hydralazine based on symptoms of tachycardia, highly unlikely to be Suboxone overdose based on physical findings he lacked symptoms such as pinpoint pupils, nystagmus although still possible - Urine tox screen completed, positive for Methamphetamines - monitored for signs arrhythmia, myocardial ischemia, profound shock, hypoventilation - Continued telemetry, stopped 05/15/16 - monitor for anticholinergic toxicity - Held QT prolongation medications - Repeated EKG 05/15/16 QTc trended down 2. Auditory hallucinations, acute, present on admission - Etiology of altered mental status and hallucinations likely due to drug induced psychosis, Recommend outpatient follow up - SW visited if patient gave sobriety resources,assessed psychosocial history - Per outpatient records patient recently stated he was hearing voices, continued to monitor and assess, 3. Priapism, acute, resolved - Penis drained, dressed no sign of infection from drainage site. - Urology consulted on case for drainage, 150cc dark blood drained, penis was dressed with gauze, we appreciate their time and expertise in this case 4. R/o endocarditis, unlikely at present time - With patient IVDU history, his risk for endocarditis is increased - Faint systolic murmur heard on physical exam - procalcitonin and lactic acid ordered, negative - Procal and lactic acid, negative 5.Asthma - on no home medications Exam Vital Signs (Last) Date Time Temp Pulse Resp B/P Pulse Ox O2 Delivery O2 Flow Rate FiO2 05/16/16 11:19 37.0 113 20 127/84 94 Room Air Exam GEN: Somnolent, difficult to arouse. Temporarily responds to stimuli. Alert to person, HEENT: NC/AT, pupils non reactive and fixed at 3mm, sclera anicteric Neck: Supple with full PROM CV: Tachycardia normal S1, S2, soft systolic murmur heart at mitral post, no gallop no rub Lungs: CTAB, no respiratory distress ABD: soft, non-tender, no organomegaly, normal active bowel sounds Skin: Warm, dry and intact, no rashes, or lesions Ext: no edema or cyanosis Neuro: muffled voice, difficult to assess due to decreased mentation Psych: Flattened affect, labile mood, increasing agitated, patient stated that he is actively hearing multiple voices, denies homicidal ideation, denies suicidal ideation, poor judgement, poor insight. Test 05/14/16 00:50 05/14/16 04:20 05/14/16 06:25 05/14/16 10:25 Hold Lepe Top Tube Received (Received) Salicylates Level < 3.0ug/mL (30-250) Acetaminophen Level < 15.0ug/mL Rx (10-25) Alcohol, Quantitative < 10mg/dL (0-10) Total Bilirubin 0.7mg/dL (0.0-1.2) Aspartate Amino Transf (AST/SGOT) 46U/L (0-50) Alanine Aminotransferase (ALT/SGPT) 53U/L (0-44) Alkaline Phosphatase 78U/L (25-150) Total Protein 6.4g/dL (6.4-8.4) Albumin 3.9g/dL (3.4-5.0) Urine Color Yellow (YELLOW) Urine Appearance Clear (CLEAR,HAZY) Urine pH 6.5 (5.0-8.0) Urine Specific [place] 1.020 (1.003-1.035) Urine Protein Negativemg/dL (NEG,TRACE) Urine Glucose (UA) Negativemg/dL (NEGATIVE) Urine Ketones Negativemg/dL (NEGATIVE) Urine Occult Blood Negative (NEGATIVE) Urine Nitrite Negative (NEGATIVE) Urine Bilirubin Negative (NEGATIVE) Urine Urobilinogen Normalmg/dL (NORMAL) Urine Leukocyte Esterase Negative (NEGATIVE) Urine RBC 0-2/hpf (0-2) Urine WBC 0-5/hpf (0-5) Urine Epithelial Cells Occasional/hpf (NONE-MOD) Urine Crystals None seen (NONE SEEN) Urine Bacteria Few/hpf (NONE-FEW) Urine Hyaline Casts None/lpf (NONE) Urine Granular Casts None seen (NONE SEEN) Urine Waxy Casts None seen (NONE SEEN) Urine Red Blood Cell Casts None seen (NONE SEEN) Urine White Blood Cell Casts None seen (NONE SEEN) Urine Mucus None seen (None Seen) Urine Trichomonas None seen (NONE SEEN) Urine Yeast None (NONE SEEN) Urinalysis Comment None Hold Urine Received (Received) Urine Opiates Screen Negative Urine Methadone Screen Negative Urine Barbiturates Screen Negative Urine Amphetamines Screen Positive Urine Benzodiazepines Screen Negative Urine Cocaine Metabolite Screen Negative Urine Cannabinoids Screen Negative Lactate Dehydrogenase 141U/L (100-190) Test 05/15/16 02:55 05/16/16 02:30 Prothrombin Time 11.4sec (8.1-12.5) Prothromb Time International Ratio 1.06ratio Lactic Acid Level 0.5mmol/L (0.4-2.0) Procalcitonin < 0.05ng/mL (See Comment) Thyroid Stimulating Hormone (TSH) 0.662uIU/mL (0.450-4.500) White Blood Count 8.7th/mm3 (3.8-10.1) Red Blood Count 4.52mil/mm3 (4.40-5.80) Hemoglobin 12.3g/dL (13.8-17.2) Hematocrit 36.5% (41.0-50.0) Mean Corpuscular Volume 80.8fL (81-100) Mean Corpuscular Hemoglobin 27.2pg (27.0-35.0) Mean Corpuscular Hemoglobin Concent 33.7% (32.0-37.0) Red Cell Distribution Width 12.9% (12.3-15.4) Platelet Count 204bil/L (150-400) Neutrophils (%) (Auto) 61.7% (40-74) Lymphocytes (%) (Auto) 21.7% (14-46) Monocytes (%) (Auto) 14.7% (4-12) Eosinophils (%) (Auto) 1.5% (0-5) Basophils (%) (Auto) 0.3% (0-3) Sodium Level 139mEq/L (134-144) Potassium Level 4.2mEq/L (3.5-5.2) Chloride Level 104mEq/L (97-108) Carbon Dioxide Level 26mmol/L (18-29) Blood Urea Nitrogen 12mg/dL (6-20) Creatinine 0.63mg/dL (0.76-1.27) Estimat Glomerular Filtration Rate 155mL/min (>59) Glucose Level 107mg/dL (60-99) Calcium Level 8.5mg/dL (8.5-10.1) Magnesium Level 1.9mg/dL (1.6-2.6) Total Creatine Kinase 153U/L (21-232) Discharge Medications Discharge Medications Diclofenac ER (Diclofenac ER) 75 Mg Tablet 75 MG PO BID (Reported) Silver Sulfadiazine (Silver Sulfadiazine) 400 Gm Cream..g. 400 GM TP BID Prescribed by: MELLO WALKER MD As needed Olanzapine (Zyprexa) 2.5 Mg Tablet 2.5 MG PO A PRN PRN For Agitation Prescribed by: GAMALIEL GOEL DO Followup Plan Follow-up plan as above Discharge Diet: No restrictions Discharge Activity: Limited until seen by PCP Patient Instructions Follow up with PCP in two weeks Follow up with [facility] in once week. Continue home medications Follow up with Suboxone clinic on Wednesday Crisis Center number provided please call as soon as you can Stop Seroquel Stop Hydroxyzine If you have any thoughts of worsening depression, suicide, homicide, hurting yourself or other please seek emergency medical care Follow-up with PCP in: 1 week Time spent Greater than 30 minutes was spent in preparation of discharge with greater than 50% of that time dedicated to patient counseling and coordination of care. . Attending Statement The patient was seen and examined together with Dr. Goel on 05/16/2016 and I agree with the history, exam and plan as outlined in the note above. . copies to: Kael Smith AARON J DO May 16, 2016 19:38 Juan Goode MD May 17, 2016 07:55
== END 2016-05-16 13:55 | disposition left against medical advice (07) ==
LOC: SED 00:10 → PCC 01:56
PROVIDERS: ADMIT Hospitalist; ATTEND Hospitalist
DX: F32.89 Other specified depressive episodes (principal); N48.33 Priapism, drug-induced; R44.0 Auditory hallucinations; T14.91 Suicide attempt; T40.4X2A Poisoning by other synthetic narcotics, intentional self-harm, initial encounter; T40.1X2A Poisoning by heroin, intentional self-harm, initial encounter; Y92.029 Unspecified place in mobile home as the place of occurrence of the external cause; F17.210 Nicotine dependence, cigarettes, uncomplicated; F11.20 Opioid dependence, uncomplicated; F15.20 Other stimulant dependence, uncomplicated; K21.9 Gastro-esophageal reflux disease without esophagitis; Z79.52 Long term (current) use of systemic steroids; J45.50 Severe persistent asthma, uncomplicated
CPT/HCPCS: 10160; 36415; 71010; 80048; 80053; 81001; 82308; 82550; 83605; 83615; 83735; 84443; 85025; 85027; 85610; 87040; 93005; 96361; 96374; 99291; G0378; G0480; J1630; J1650; J2060; J7030

== ENCOUNTER 2016-06-03 19:12 | Emergency (ER) | payer OTHER ==
[~2016-06-03] VITALS: Ht 170.2 cm; Wt 72.7 kg
[~2016-06-03 19:12] MED LIST changes: +DICL75TA6 PO; +OLAN2.5T3 PO; -[UNRECOGNIZED DRUG - CODE] PO
[2016-06-03 19:30] VITALS: BP 137/77; PULSE 77; RESP 16; O2SAT 98
--- NOTE | 2016-06-03 19:57 | ED.REPORT ---
HPI- Male Date of Service Jun 03, 2016 ED Provider: Dr. Channing Banks M.D. A 35 year old male with a history of priapism, asthma, hepatitis C, substance abuse, and depression s/p multiple suicide attempts presents to the ED from the crisis center with a priapism onset 0600 this morning upon awakening. The patient also reports penis pain. His last meal was dinner at 1730. The patient denies other symptoms. He was recently hospitalized on 05/14/15 for two nights after a suicide attempt via Narcan overdose. While in the hospital he experienced what was thought to be a psychiatric medication associated priapism. Has been treated x2 other occasions for priaplsm. Both times thought to be associated with psych drugs. Nursing Notes Stated Complaint: PRIAPRISM Chief Complaint: Male Abdominal Pain Nursing Notes Reviewed: Yes Allergies: Coded Allergies: trazodone (Verified Allergy, Severe, priapism, 06/03/16) Scheduled Diclofenac ER (Diclofenac ER) 75 Mg Tablet 75 MG PO BID Silver Sulfadiazine (Silver Sulfadiazine) 400 Gm Cream..g. 400 GM TP BID Scheduled PRN Olanzapine (Zyprexa) 2.5 Mg Tablet 2.5 MG PO A PRN PRN For Agitation General Time Seen by MD: 19:57 Chief Complaint Prolonged erection Hx Obtained From: Patient Arrived By: Walk-in Onset Occurred: 13 - 16 hours ago Context of Onset: Spontaneous Symptom Duration: Since onset Location: : Penis Quality: Painful Severity: Current: Moderate Severity: Maximum: Moderate Associated with: Denies: Fever Pertinent Negative: Relieved by nothing Related History: Reports: Priapism history Recent Healthcare: Recent doctor visit, Recent hospitalization Similar Sx Previous: Yes Past Medical History Past Medical History Notes: At [facility], on suboxone 06/03/2016 Past Medical History Priapism in April 2015, surgical intervention required Priapism in February 2016 Hepatitis C Major depressive disorder Suicide attempts by overdose (alcohol, suboxone, prescription medications, heroin, Narcan) Reports: Asthma Past Surgical History Left knee surgery Surgical priapism resolution Smoking History Current Every Day Smoker Social History Alcohol Use: Denies alcohol use Drug Use: IV drugs, Meth Other Social History: Good social support, Local resident Ambulatory Status Independent Review of Systems Review of Systems Note: + Priapism, penis pain Constitutional: Denies: Fever GI: Denies: Abdominal pain, Vomiting Complete sys rev & neg: except as marked. Respiratory: Denies: Non-productive cough, Shortness of breath Physical Exam Initial Vital Signs Vital Signs (First) Date Time Temp Pulse Resp B/P Pulse Ox O2 Delivery O2 Flow Rate FiO2 06/03/16 19:30 36.6 77 16 137/77 98 Room Air Initial VS: Reviewed Head / Eyes: Atraumatic, Normocephalic ENT: Conjunctiva normal, No scleral icterus Neck: Supple, Full range of motion Respiratory: No respiratory distress Skin: Warm, Dry Neurologic: Alert, Oriented, Nonfocal Psychiatric: Mood/affect normal, Behavior normal, Normal thought content Male Genitourinary: Atraumatic Appearance consistent with priapism General/Constitutional: Awake, Alert Re-Eval/Medical Decision Source of Hx: Old records Re-Evaluation/Progress #1: Time of Eval: 20:53 Patient Status: Condition unchanged Re-Evaluation/Progress Note: Phenylephrine injections given Re-Evaluation/Progress #2: Time of Eval: 21:28 Patient Status: Condition unchanged Re-Evaluation/Progress Note: Patient rechecked. Re-Evaluation/Progress #3: Time of Eval: 21:40 Patient Status: Condition improved Re-Evaluation/Progress Note: Patient's condition has improved but not resolved. Re-Evaluation/Progress #4: Time of Eval: 22:03 Patient Status: Condition improved Re-Evaluation/Progress Note: Condition has still not resolved. Manual compressions of glans performed, additional injections given. Patient agrees with plan for care and all questions were addressed. Re-Evaluation/Progress #5: Time of Eval: 22:10 Patient Status: Condition improved Re-Evaluation/Progress Note: Additional injections given. Patient instructed to squeeze penis vigorously. Re-Evaluation/Progress #6: Time of Eval: 22:56 Re-Evaluation/Progress Note: Patient's priapism had reduced but is now returning. Additional injections administered. Re-Evaluation/Progress #7: Time of Eval: 23:16 Patient Status: Condition improved Re-Evaluation/Progress Note: Patient rechecked. Re-Evaluation/Progress #8: Time of Eval: 00:16 Patient Status: Condition resolved Re-Evaluation/Progress Note: no recurrence. will discharge Consultation #1: Referral / Consult Name: Rea Cain MD Consulted With: Urology Requested Call at: 20:00 Call Returned at: 20:04 Insole Toe Snipping Machine Operator: Agrees with eval, Agrees with plan Note: Recommends phenylephrine injections Consultation #2: Referral / Consult Name: Rea Cain MD Consulted With: Urology Call Returned at: 20:20 Insole Toe Snipping Machine Operator: Agrees with eval, Agrees with plan Note: Updated with patient's case Consultation #3: Referral / Consult Name: Rea Cain MD Consulted With: Urology Call Returned at: 21:41 Insole Toe Snipping Machine Operator: Agrees with eval, Agrees with plan Note: Updated with patient's case. Consultation #4: Referral / Consult Name: Rea Cain MD Consulted With: Urology Call Returned at: 23:04 Insole Toe Snipping Machine Operator: Agrees with eval, Agrees with plan Note: Updated with patient's case Consultation #5: Referral / Consult Name: Rea Cain MD Consulted With: Urology Call Returned at: 23:20 Insole Toe Snipping Machine Operator: Will see patient, Agrees with eval, Agrees with plan Note: Updated with patient's case. Will contact patient tomorrow morning. Counseled Regarding: Diagnosis Discharge & Departure Impression: Primary Impression: Priapism Disposition: Home Discharge Condition All VS Reviewed: Yes Condition: Stable Additional Instructions: We treated a priapism today. Urology will call in the am for follow up tomorrow. Stop seroquel. Return to ED if priapism returns. Referrals: Rea Cain MD Attestation Portions of this note were transcribed by Cony Nash. I, Dr. Banks, personally performed the history, physical exam, and medical decision-making; I reviewed and confirmed the accuracy of the information in the transcribed note. Signed by: Arlene Booth, 06/03/2016, 00:03 copies to: Rea Cain MD; WalthamKael Barnett Donald L MD Jun 03, 2016 19:57 CONY NASH Jun 03, 2016 20:06
[2016-06-03] MEDS ORDERED: Phenylephrine/NS 100 mCg/mL 10 mL Syringe IVPUSH ONE (20:10)
[2016-06-03 21:58] VITALS: BP 129/48; PULSE 78; RESP 18; O2SAT 95
[2016-06-03] MEDS ORDERED: Buprenorphine 2 mg SL Tablet SL ONE (22:15)
[2016-06-04 00:26] VITALS: BP 125/80; PULSE 62; RESP 16; O2SAT 99
== END 2016-06-04 00:26 | disposition home or self-care (01) ==
LOC: SED 19:12
DX: N48.30 Priapism, unspecified (principal); J45.909 Unspecified asthma, uncomplicated; F15.90 Other stimulant use, unspecified, uncomplicated; F17.200 Nicotine dependence, unspecified, uncomplicated; Z91.5 Personal history of self-harm; Z88.8 Allergy status to other drugs, medicaments and biological substances
CPT/HCPCS: 96374; 99284; J2370

== ENCOUNTER 2016-08-27 19:06 | Emergency (ER) | payer OTHER ==
[~2016-08-27] VITALS: Ht 167.6 cm; Wt 72.7 kg
[2016-08-27 19:31] VITALS: BP 126/75; PULSE 78; RESP 16; O2SAT 99
--- NOTE | 2016-08-27 20:49 | ED.REPORT ---
HPI-Psychiatric Illness Date of Service August 27, 2016 ED Provider: Romaine Asif MD 35 year old male with a history of IVDU, depression and Suicide attempts by overdose (alcohol, suboxone, prescription medications, heroin, Narcan) presents to the ER due to auditory hallucinations. Pt has been using meth and heroin and states that his hallucinations are worse when he uses. He states the voices are telling him to hurt himself but they do not tell him to hurt others. He has thoughts of suicide by overdose, but he does not believe that he would follow through at this time. Pt takes Seroquel and anti-depressant. Nursing Notes Stated Complaint: PSYCHIATRIC COMPLAINT Chief Complaint: Psychiatric Complaint Nursing Notes Reviewed: Yes Allergies: Coded Allergies: trazodone (Verified Allergy, Severe, priapism, 08/27/16) Scheduled Diclofenac ER (Diclofenac ER) 75 Mg Tablet 75 MG PO BID Silver Sulfadiazine (Silver Sulfadiazine) 400 Gm Cream..g. 400 GM TP BID Scheduled PRN Olanzapine (Zyprexa) 2.5 Mg Tablet 2.5 MG PO A PRN PRN For Agitation General Time Seen by MD: 20:39 Chief Complaint Hallucinations, auditory Hx Obtained From: Patient Arrived By: Walk-in Onset Occurred: Onset unknown Symptom Duration: Duration unknown Severity: Current: No pain currently Associated with: Reports: Illicit drug use, Denies: Fever Exacerbated by: Drug abuse Risk-Psychiatric Illness Suicide Risk Stratification Suicide Risk Factors - Adult: : Alcohol use: Previous attempt: Prior psych admission: Substance abuse RF Statements: Risk factors reviewed Past Medical History Past Medical History Notes: At [facility], on suboxone 06/03/2016 Past Medical History Priapism in April 2015, surgical intervention required Priapism in February 2016 Hepatitis C Major depressive disorder Suicide attempts by overdose (alcohol, suboxone, prescription medications, heroin, Narcan) Reports: Asthma Past Surgical History Left knee surgery Surgical priapism resolution Smoking History Current Every Day Smoker Social History Alcohol Use: Denies alcohol use Drug Use: IV drugs, Meth Other Social History: Good social support, Local resident Ambulatory Status Independent Review of Systems Psychiatric: Reports: Delusional, Hallucinations, auditory, Suicidal ideation, Denies: Homicidal ideation Complete sys rev & neg: except as marked. Physical Exam Initial Vital Signs Vital Signs (First) Date Time Temp Pulse Resp B/P Pulse Ox O2 Delivery O2 Flow Rate FiO2 08/27/16 19:31 36.7 78 16 126/75 99 Room Air Initial VS: Reviewed Head / Eyes: Atraumatic, Normocephalic, PERRL ENT: Conjunctiva normal, No scleral icterus Neck: Full range of motion Respiratory: Breath sounds normal, Clear to auscultation, No respiratory distress Cardiovascular: Regular rate & rhythm, Heart sounds normal, Intact distal pulses Abdomen / GI: Soft, Non-tender, No guarding, No rebound, No distention Extremities: Vascular intact, Neuro intact, No swelling, No tenderness Skin: Warm, Dry, No cyanosis General/Constitutional: Awake, Alert Neurologic: Oriented X3, Speech NL, No motor deficits Psychiatric: Not homicidal Abnormal Mood/Affect: Positive: Depressed, Flat affect Abnormal Thinking / Perception: Positive: Suicidal, with plan Re-Eval/Medical Decision Med Decision/Clinical Course 35-year-old male history of IV drug use and chronic hallucinations and suicidal thoughts presenting with suicidal ideation without intent. Patient arrived late in the evening and social welfare clerk was not available to evaluate him. I did discuss with social welfare clerk and she thought the patient could contract for safety. Discharged home. I discussed with patient and he requests to be discharged home. He reports chronic suicidal thoughts but denies intent and agrees that he will not hurt himself. If he has any thoughts of hurting himself he will seek help immediately. Discharged in the care of his mother with plans to call his counselor in the morning. Re-Evaluation/Progress : Time of Eval: 22:55 Re-Evaluation/Progress Note: Pt feels much better. He does not want to harm himself and denies suicidal ideations at this time. He has to work tomorrow that he would like to go to. He has a plan to go to work. He agrees to call 911, his mother or return to the ER if he feels like harming himself. Counseled Regarding: Diagnosis, Need for follow-up, When/why to return to ED Discharge & Departure Impression: Primary Impression: Suicidal thoughts Additional Impression: Auditory hallucinations )( Condition at Discharge: No danger to self, No danger to others Disposition: Home Discharge Condition All VS Reviewed: Yes Condition: Improved Additional Instructions: You have agreed that you are safe to go home and will not hurt yourself. You agreed that if you think about hurting yourself you will seek help immediately and will not hurt yourself. Return to the ER or call 911 if you develop thoughts of harming yourself. Call to schedule an appointment with your counselor and primary doctor tomorrow. Please be safe. We are here to help at all times. Referrals: Kael Smith DO (PCP) Scribe Attestation Portions of this note were transcribed by Cecilia Hope. I, (Dr. Romaine Cedeno) personally performed the history, physical exam and medical decision- making; I reviewed and confirmed the accuracy of the information in the transcribed note. Signed by: Cecilia Hope. Arlene, 08/27/2016, 2610 copies to: Kael Smith Ben M MD August 27, 2016 20:49 Cecilia Hope August 27, 2016 21:05
[2016-08-27 23:15] VITALS: BP 115/64; PULSE 68; RESP 16; O2SAT 98
[2016-08-27 23:16] VITALS: BP 115/64; PULSE 68; RESP 16; O2SAT 98
== END 2016-08-27 23:18 | disposition home or self-care (01) ==
LOC: SED 19:06
DX: R45.851 Suicidal ideations (principal); R44.0 Auditory hallucinations; F15.10 Other stimulant abuse, uncomplicated; F11.10 Opioid abuse, uncomplicated; F17.210 Nicotine dependence, cigarettes, uncomplicated; J45.909 Unspecified asthma, uncomplicated; F43.10 Post-traumatic stress disorder, unspecified; Z88.8 Allergy status to other drugs, medicaments and biological substances

== ENCOUNTER 2016-09-01 04:13 | Emergency (ER) | payer OTHER ==
[~2016-09-01] VITALS: Ht 167.6 cm; Wt 68.2 kg
[2016-09-01 04:21] VITALS: BP 133/77; PULSE 72; RESP 16; O2SAT 98
--- NOTE | 2016-09-01 04:48 | ED.REPORT ---
HPI-Psychiatric Illness Date of Service September 01, 2016 ED Provider: Alex Holly MD A 35 year old male with a medical history including depression, hepatitis C, prior suicide attempts, and IV drug use presents to the ED accompanied by his mother reporting intermittent auditory hallucinations onset six months ago, worsening last night. The patient denies other symptoms. He was in the ED on 02/2017 with suicidal ideation and auditory hallucinations. The patient last used methamphetamines today. He also used Suboxone and heroin last night. Nursing Notes Stated Complaint: MENTAL HEALTH Chief Complaint: Psychiatric Complaint Nursing Notes Reviewed: Yes Allergies: Coded Allergies: trazodone (Verified Allergy, Severe, priapism, 08/27/16) Scheduled Diclofenac ER (Diclofenac ER) 75 Mg Tablet 75 MG PO BID Silver Sulfadiazine (Silver Sulfadiazine) 400 Gm Cream..g. 400 GM TP BID Scheduled PRN Olanzapine (Zyprexa) 2.5 Mg Tablet 2.5 MG PO A PRN PRN For Agitation General Time Seen by MD: 04:42 Chief Complaint Hallucinations, auditory Hx Obtained From: Patient, Other family... (Mother) Arrived By: Walk-in Onset Occurred: More than a week ago... (6 months) Context of Onset: Illicit drug use Symptom Duration: Intermittent Severity: Current: No pain currently Severity: Maximum: No pain Pertinent Negative: Relieved by nothing Related History: Reports: Depression, Illicit drug use, Prior suicide attempt(s ) Immunizations: Unknown Recent Healthcare: Recent doctor visit Similar Sx Previous: Yes Risk-Psychiatric Illness Suicide Risk Stratification RF Statements: Risk factors reviewed Past Medical History Past Medical History Notes: At [facility], on suboxone 06/03/2016 Past Medical History Priapism in April 2015, surgical intervention required Priapism in February 2016 Hepatitis C Major depressive disorder Suicide attempts by overdose (alcohol, suboxone, prescription medications, heroin, Narcan) Reports: Asthma Past Surgical History Left knee surgery Surgical priapism resolution Smoking History Current Every Day Smoker Social History Alcohol Use: Denies alcohol use Drug Use: IV drugs, Meth Other Social History: Good social support, Local resident Ambulatory Status Independent Review of Systems Constitutional: Denies: Fever Respiratory: Denies: Non-productive cough, Shortness of breath GI: Denies: Diarrhea, Vomiting Psychiatric: Reports: Hallucinations, auditory Complete sys rev & neg: except as marked. Physical Exam Initial Vital Signs Vital Signs (First) Date Time Temp Pulse Resp B/P Pulse Ox O2 Delivery O2 Flow Rate FiO2 09/01/16 04:21 36.4 72 16 133/77 98 Room Air Initial VS: Reviewed, Vital signs normal Head / Eyes: Atraumatic, Normocephalic ENT: Conjunctiva normal, No scleral icterus Neck: Supple, Full range of motion Respiratory: Breath sounds normal, Clear to auscultation, No respiratory distress Cardiovascular: Regular rate & rhythm, Heart sounds normal Skin: Warm, Dry, No cyanosis General/Constitutional: Awake, Alert Alertness: Positive: Confused Slow to respond Abnormal Thinking / Perception: Positive: Hallucinations, auditory (Per patient ) Upper Extremity / MS: Full range of motion Good veins without abundant scarring Couple of active track ulo in right antecubital Interpretation & Diagnostics Lab Results Interpretation Result Diagram: 09/01/16 0525 Test 09/01/16 05:25 White Blood Count 13.0th/mm3 (3.8-10.1) Red Blood Count 5.49mil/mm3 (4.40-5.80) Hemoglobin 15.5g/dL (13.8-17.2) Hematocrit 44.2% (41.0-50.0) Mean Corpuscular Volume 80.5fL (81-100) Mean Corpuscular Hemoglobin 28.2pg (27.0-35.0) Mean Corpuscular Hemoglobin Concent 35.1% (32.0-37.0) Red Cell Distribution Width 12.3% (12.3-15.4) Platelet Count 255bil/L (150-400) Neutrophils (%) (Auto) 76.6% (40-74) Lymphocytes (%) (Auto) 13.4% (14-46) Monocytes (%) (Auto) 8.2% (4-12) Eosinophils (%) (Auto) 1.0% (0-5) Basophils (%) (Auto) 0.5% (0-3) Band Neutrophils % % (1-5) Hold Lepe Top Tube Received (Received) Lab Results Interpretation: Elevated white blood count secondary to stress Re-Eval/Medical Decision Med Decision/Clinical Course 35-year-old male with relapse on heroin and methamphetamine presents acutely intoxicated with methamphetamine and globally disorganized. He developed some agitation was given Haldol, Ativan, and Benadryl. His workup is in progress and his care is being turned over at change of shift to the oncoming doctor. Source of Hx: Old records Re-Evaluation/Progress : Time of Eval: 05:06 Patient Status: Condition improved Re-Evaluation/Progress Note: Discussed with patient and his mother plan for transfer of care to Dr. Austin at change of shift for social work evaluation in the morning. Discharge & Departure Shift Change Sign-Out Patient Care Transferred: Yes (Dr. Austin) Discussed Complaint(s): Yes Laboratory Evaluation: Ordered, not yet done Response to Therapy: Improved Impression: Primary Impression: Acute psychosis Additional Impression: Methamphetamine abuse Referrals: Kael Smith DO (PCP) Care Transferred to: Dr. Austin Care Transferred at: 06:00 Scribe Attestation Portions of this note were transcribed by Cony Nash. I, Dr. Holly, personally performed the history, physical exam, and medical decision-making; I reviewed and confirmed the accuracy of the information in the transcribed note. Signed by: Arlene Booth, 09/01/2016, 05:25 copies to: Kael Smith Howard L MD September 01, 2016 04:48 CONY NASH September 01, 2016 05:01
[2016-09-01 05:47] LABS: BASOPHILS % (AUTO) 0.5 % (0-3); MONOCYTES % (AUTO) 8.2 % (4-12); Mean Corpuscular Hemoglobin 28.2 pg (27.0-35.0); Mean Corpuscular Volume 80.5 fL (81-100); NEUTROPHILS % (AUTO) 76.6 % (40-74); Platelet Count 255 bil/L (150-400)
[2016-09-01] MEDS ORDERED: LORazepam 2 mg Tablet PO ONE (06:00)
[2016-09-01] MEDS ORDERED: diphenhydrAMINE 25 mg Capsule PO ONE (06:00)
[2016-09-01 10:33] VITALS: BP 106/60; PULSE 62; RESP 16; O2SAT 98
[2016-09-01 14:50] VITALS: BP 103/53; PULSE 74; RESP 12; O2SAT 98
[2016-09-01 19:52] VITALS: BP 111/55; PULSE 75; RESP 18; O2SAT 98
== END 2016-09-01 19:56 | disposition home or self-care (01) ==
LOC: SED 04:13
DX: F23 Brief psychotic disorder (principal); F15.10 Other stimulant abuse, uncomplicated; J45.909 Unspecified asthma, uncomplicated; F17.210 Nicotine dependence, cigarettes, uncomplicated; F43.10 Post-traumatic stress disorder, unspecified; Z88.8 Allergy status to other drugs, medicaments and biological substances